=== PATIENT | female | born 1965 | race Caucasian/White ===

== ENCOUNTER → 2017-07-27 | Outpatient (CLI) | payer OTHER ==
[2017-07-27 13:10] LABS: BASO # 0.1 10^3/uL (0.0-0.2); BASO % 0.8 % (0.0-1.0); EOS # 0.1 10^3/uL (0.0-0.50); EOS % 1.8 % (0.0-3.0); IMMATURE GRANULOCYTE % 0.3 % (0-0); LYMPH # 1.6 10^3/uL (1.5-4.5); LYMPH % 24.4 % (24.0-44.0); MEAN CORPUSCULAR HEMOGLOBIN 32.9 pg (27.0-33.0); MEAN CORPUSCULAR HGB CONC 34.6 g/dl (32.0-36.5); MEAN CORPUSCULAR VOLUME 95.1 fl (80.0-96.0); MONO # 0.4 10^3/uL (0.0-0.8); MONO % 6.5 % (0.0-5.0); NEUTROPHILS # 4.4 10^3/uL (1.8-7.7); NEUTROPHILS % 66.2 % (36.0-66.0); PLATELET COUNT, AUTOMATED 218 10^3/uL (150-450); RED CELL DISTRIBUTION WIDTH 13.7 % (11.5-14.5); WHITE BLOOD COUNT 6.6 10^3/uL (4.0-10.0)
[2017-07-27 13:34] LABS: ALBUMIN 3.8 GM/DL (3.2-5.2); ALBUMIN/GLOBULIN RATIO 1.27 (1.00-1.93); ALKALINE PHOSPHATASE 68 U/L (45-117); ALT/SGPT 50 U/L (12-78); ANION GAP 6 MEQ/L (8-16); AST/SGOT 27 U/L (7-37); BILIRUBIN,TOTAL 0.4 MG/DL (0.2-1.0); BLOOD UREA NITROGEN 19 MG/DL (7-18); CALCIUM LEVEL 9.2 MG/DL (8.5-10.1); CARBON DIOXIDE LEVEL 28 MEQ/L (21-32); CHLORIDE LEVEL 108 MEQ/L (98-107); CHOLESTEROL LEVEL 227 MG/DL (<200); CREATININE FOR GFR 0.52 MG/DL (0.55-1.02); FREE T4 0.84 NG/DL (0.76-1.46); GLOMERULAR FILTRATION RATE > 60.0 (>51); GLUCOSE, FASTING 91 MG/DL (70-105); POTASSIUM SERUM 4.2 MEQ/L (3.5-5.1); SODIUM LEVEL 142 MEQ/L (136-145); TOTAL PROTEIN 6.8 GM/DL (6.4-8.2); TRIGLYCERIDES LEVEL 103 MG/DL (<150)
== END ==
LOC: M SMT 09:46
PROVIDERS: ATTEND Family Medicine
DX: I10 Essential (primary) hypertension (principal); R53.83 Other fatigue; I25.2 Old myocardial infarction

== ENCOUNTER 2017-10-02 11:10 | Emergency (ER) | payer OTHER | END 2017-10-02 12:43 | disposition home or self-care (01) | LOC: M ED 11:10 | DX: R23.3 Spontaneous ecchymoses (principal); I10 Essential (primary) hypertension; I25.2 Old myocardial infarction; Z79.899 Other long term (current) drug therapy; Z88.0 Allergy status to penicillin; Z88.8 Allergy status to other drugs, medicaments and biological substances; Z91.040 Latex allergy status; Z87.891 Personal history of nicotine dependence; Z95.0 Presence of cardiac pacemaker | CPT/HCPCS: 73130 ==

== ENCOUNTER 2018-11-09 07:51 | Day surgery (SDC) | payer OTHER ==
[~2018-11-09] VITALS: Ht 167.6 cm; Wt 81.6 kg
[~2018-11-09 07:51] MED LIST: CHLO125TA PO; DIOV320T PO; fentaNYL 100 MCG/2 ML INJECTION (J3010) IV SCH
[2018-11-09] MEDS ORDERED: EPINEPHrine INJ 1 MG/ML 1ML AMP ONE (07:52)
[2018-11-09] MEDS ORDERED: ROPIvacaine 0.5% 30 ML INJECTION (J2795 PER 1MG) ONE (07:52)
[2018-11-09] MEDS ORDERED: LR 1,000 ML IV ONE (08:15)
[2018-11-09] MEDS ORDERED: fentaNYL 100 MCG/2 ML INJECTION (J3010) As Ordered ONE (08:53)
[2018-11-09] MEDS ORDERED: MIDAZOLAM INJ 2 MG/2 ML VIAL (J2250) As Ordered ONE ×2 (08:53→11:05)
[2018-11-09 09:10] LABS: URINE PREG TEST NEGATIVE (NEGATIVE)
[2018-11-09] MEDS: MIDAZOLAM INJ 2 MG/2 ML VIAL (J2250) IV SCH ×2 (09:12→09:15)
--- NOTE | 2018-11-09 09:42 | ECGEPIP ---
Stationary ECG Study [facility] Test Date: 2018-11-09 Pat Name: AYLEEN MOREAU Department: Room: - Gender: F Consumer Loan Manager: : [id number] Requested By: TITUS Lucero Order Number: [id number] Reading MD: Lata Hernandez Measurements Intervals [place] Rate: 58 P: 58 AR: 158 QRS: 28 QRSD: 98 T: 62 QT: 440 QTc: 433 Interpretive Statements SINUS BRADYCARDIA NSSTTWABN NO PRIOR Electronically Signed On 11-09-2018 9:41:54 EST by Lata Hernandez
[2018-11-09] MEDS ORDERED: CLINDAMYCIN 600 MG/50 ML PREMIX BAG As Ordered ONE (10:11)
[2018-11-09] MEDS ORDERED: LIDOCAINE 2% INJ 100 MG/5 ML SDV (FOR ANES.) As Ordered ONE (11:05)
[2018-11-09] MEDS ORDERED: dexameTHASONE 4 MG/ML 1ML VIAL (J1100) As Ordered ONE (11:05)
[2018-11-09] MEDS ORDERED: fentaNYL 250 MCG/5 ML INJECTION (J3010) As Ordered ONE (11:05)
[2018-11-09] MEDS ORDERED: PROPOFOL 200 MG/20 ML VIAL As Ordered ONE (11:05)
[2018-11-09] MEDS ORDERED: ROCURONIUM BROMIDE 50 MG/5 ML VIAL As Ordered ONE (11:05)
[2018-11-09] MEDS ORDERED: ONDANSETRON 4MG/2ML VIAL (J2405) As Ordered ONE (13:06)
[2018-11-09] MEDS ORDERED: GLYCOPYRROLATE INJ 0.2 MG/ML 2 ML VIAL As Ordered ONE (13:07)
[2018-11-09] MEDS ORDERED: NEOSTIGMINE 10 MG/10 ML VIAL (J2710) As Ordered ONE (13:07)
[2018-11-09] MEDS ORDERED: KETOROLAC 60 MG/2 ML VIAL (J1885) As Ordered ONE (13:10)
[2018-11-09] MEDS ORDERED: PERCOCET 5MG/325MG TAB As Ordered ONE (14:02)
[2018-11-09] MEDS: fentaNYL 100 MCG/2 ML INJECTION (J3010) IV PRN ×8 (14:05→14:55)
[2018-11-09] MEDS ORDERED: METOCLOPRAMIDE INJ 10MG/2ML VIAL (J2765) IV PRN (14:15)
[2018-11-09] MEDS ORDERED: ONDANSETRON 4MG/2ML VIAL (J2405) IV PRN (14:15)
[2018-11-09] MEDS ORDERED: LR 1,000 ML IV SCH ×2 (14:15→15:00)
[2018-11-09] MEDS ORDERED: PERCOCET 5MG/325MG TAB PO PRN (14:15)
[2018-11-09] MEDS: MEPERIDINE INJ 25 MG/ML VIAL (J2175) IV PRN ×2 (14:20→14:25)
--- NOTE | 2018-11-09 14:59 | REP ---
C-ARM VIEWS, CALCANEUS: Multiple C-ARM views of the calcaneus are performed. There is mild inferior calcaneal spurring. There appears to be a resection of a portion of the posterior calcaneus. 21 seconds of fluoroscopy time utilized. Electronically Signed by Navarro Rodriguez MD 11/09/2018 05:31 P
[2018-11-09 15:50] VITALS: BP 149/74
--- NOTE | 2018-11-11 12:27 | RO ---
DATE OF PROCEDURE: 11/09/2018 PREOPERATIVE DIAGNOSIS: Left Achilles insertional tendinosis. POSTOPERATIVE DIAGNOSIS: Left Achilles insertional tendinosis. PROCEDURE: 1. Left Achilles extensive debridement. 2. Left Achilles repair. 3. Use of mini C-arm. 4. Flexor hallucis longus transfer to the calcaneus. SURGEON: Jo Ann Edmondson MD SUPERVISOR INTELLIGENCE ANALYST: MEREDITH Gallardo ANESTHESIA: General endotracheal with popliteal nerve block. SPECIMENS: Calcifications from Achilles tendon. ESTIMATED BLOOD LOSS: 25 mL. COMPLICATIONS: None. IMPLANTS: Achilles SpeedBridge system and a PEEK 6.25 x 15 mm Bio-Tenodesis screw for the FHL transfer. 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 She has failed conservative measures and has elected for operative treatment. Informed consent was obtained in the office. Risks and benefits of the surgery were discussed with the patient and include, but are not limited to, infection, damage to nerves and blood vessels, need for additional procedures, continued pain and stiffness, tendon rupture, blood clot. Despite these risks, the patient wished to proceed with surgery. PROCEDURE: The patient was met in preoperative holding area where her left lower extremity was marked as the correct operative site. She underwent a popliteal nerve block. She was taken to the operating room where she underwent general endotracheal anesthesia without difficulty and was placed in the prone position. Her bony prominences were well padded. A well padded tourniquet was placed on the left upper thigh. The left lower extremity was prepped and draped in a normal sterile fashion. Esmarch was used to exsanguinate the leg and the tourniquet was inflamed to 250 mmHg. The tourniquet was up for approximately 150 minutes. An official time out was held where the correct patient, operative site and procedure were verified. Appropriate radiographs were displayed in the operating room. Antibiotics were given within an hour of incision. Incision was marked out over the midportion of the Achilles tendon, extending down to the insertion. A #15 blade was used to make the incision and a Montgomery was used to identify the peritenon, which was then incised. This was tied with #3-0 Vicryl for later closure. Using a fresh blade, an incision was made directly through the Achilles tendon directly through the Achilles tendon from posterior to anterior. There was a very large area of calcification proximal to the insertion, which was isolated and removed from the tendon. There was also a very large enthesophyte that was removed with the use of osteotomes and a 38 blade saw. The tendon was taken off the posterior aspect of its insertion. All tendinotic tissue was debrided from the anterior aspect of the Achilles tendon. The tendon was palpated on both sides to ensure that any degenerative tissue and calcification had all been removed. Copious irrigation was performed a this point. Following this, lateral x-ray was checked to determine the resection for the Janet's. This was then resected using the saggital saw. Lateral x-ray was again checked and found that I needed to take a further amount of bone, which was performed. There was no evidence of calcification left on the tendon on this image as well. When I was satisfied with resection, the edges were smoothed down with a power rasp so all surfaces were smooth. Next, the flexor hallucis longus tendon was isolated through the main incision. It was tracked down medially as it coursed behind the sustentaculum holland. With the foot and great toe in plantar flexion, the tendon was excised using a long handled knife from medial to lateral. A #2 FiberWire was used to whipstitch the ends. Next, a Beath pin was inserted just anterior to the Achilles tendon insertion. Its placement was confirmed on lateral radiograph. Tendon measured approximately 6 mm. A 6.5 mm reamer was used to approximately 25 mm. Following this, a FiberWire was passed through the Beath pin and the tendon was brought through the previously reamed tunnel. A 6.25 mm Bio-Tenodesis screw was then placed through this tunnel and the tendon was secured. There was noted to be good tension at neutral dorsiflexion. At this point, two holes were drilled proximally for the Achilles SpeedBridge. The drill holes were tapped by hand. The SwiveLocks were inserted through these holes and passed through the tendon. I did use stay stitch sutures on the proximal aspect and these were tied down with good tension with the foot in neutral. Distal holes were then drilled and the FiberTape was secured in a normal fashion using the SwiveLocks. Excess FiberTape was cut. The stay suture on the lateral aspect of the distal row was used to further secure the lateral insertion of the tendon. This was done in a horizontal mattress fashion. Following this, copious irrigation was performed. #0 Vicryl was used to close the tendon split in a running manner. The peritenon was then closed using #2-0 Vicryl in a running manner as well. Subcutaneous tissues were closed using #3-0 Vicryl and skin was closed using #3-0 nylon. A well padded splint was applied. The patient was extubated and transferred to the recovery room in stable condition. PLAN: The patient will be non-weightbearing on the left lower extremity. She will be on aspirin 81 mg by mouth twice a day for deep vein thrombosis (DVT) prophylaxis. She will keep her leg elevated and follow-up in one week for a wound check.
== END 2018-11-09 16:15 | disposition home or self-care (01) ==
LOC: M SDC 07:51
PROVIDERS: ATTEND Orthopaedic Surgery
DX: M76.62 Achilles tendinitis, left leg (principal); I10 Essential (primary) hypertension; I25.2 Old myocardial infarction; M12.9 Arthropathy, unspecified; M54.9 Dorsalgia, unspecified; Z88.1 Allergy status to other antibiotic agents; Z88.8 Allergy status to other drugs, medicaments and biological substances; Z91.040 Latex allergy status; Z95.0 Presence of cardiac pacemaker; Z79.899 Other long term (current) drug therapy
CPT/HCPCS: 27654; 27691; 76000; 84703; 88304; 93005; C1713; J0690; J1100; J1885; J2175; J2250; J2405; J2710; J2765; J2795; J3010

== ENCOUNTER → 2019-05-03 | Outpatient (CLI) | payer OTHER ==
[~2019-05-03] MED LIST changes: -fentaNYL 100 MCG/2 ML INJECTION (J3010) IV SCH
[2019-05-03 14:27] LABS: BASO # 0.1 10^3/uL (0.0-0.2); BASO % 0.8 % (0.0-1.0); EOS # 0.2 10^3/uL (0.0-0.50); EOS % 2.4 % (0.0-3.0); HEMATOCRIT 44.1 % (36.0-47.0); HEMOGLOBIN 15.3 g/dl (12.0-15.5); LYMPH # 1.8 10^3/uL (1.5-4.5); LYMPH % 22.6 % (24.0-44.0); MEAN CORPUSCULAR HEMOGLOBIN 34.4 pg (27.0-33.0); MEAN CORPUSCULAR HGB CONC 34.7 g/dl (32.0-36.5); MEAN CORPUSCULAR VOLUME 99.1 fl (80.0-96.0); MONO # 0.5 10^3/uL (0.0-0.8); MONO % 6.7 % (0.0-5.0); NEUTROPHILS # 5.2 10^3/uL (1.8-7.7); PLATELET COUNT, AUTOMATED 240 10^3/uL (150-450); RED BLOOD COUNT 4.45 10^6/uL (4.00-5.40); WHITE BLOOD COUNT 7.8 10^3/uL (4.0-10.0)
[2019-05-03 14:46] LABS: ALT/SGPT 38 U/L (12-78); BILIRUBIN,TOTAL 0.5 MG/DL (0.2-1.0); BLOOD UREA NITROGEN 12 MG/DL (7-18); CALCIUM LEVEL 9.2 MG/DL (8.5-10.1); CARBON DIOXIDE LEVEL 29 MEQ/L (21-32); CHLORIDE LEVEL 104 MEQ/L (98-107); CHOLESTEROL LEVEL 225 MG/DL (<200); CHOLESTEROL RISK RATIO 3.571 (<5); CREATININE FOR GFR 0.65 MG/DL (0.55-1.30); FREE T4 0.99 NG/DL (0.76-1.46); GLOMERULAR FILTRATION RATE > 60.0 (>51); GLUCOSE, FASTING 91 MG/DL (70-100); HDL CHOLESTEROL 63 MG/DL (>40); LDL CHOLESTEROL 140 MG/DL (<100); NON-HDL-C 162 MG/DL; POTASSIUM SERUM 4.1 MEQ/L (3.5-5.1); SODIUM LEVEL 140 MEQ/L (136-145); TOTAL PROTEIN 6.9 GM/DL (6.4-8.2); TRIGLYCERIDES LEVEL 109 MG/DL (<150)
== END ==
LOC: M SMT 09:55
PROVIDERS: ATTEND Family Medicine
DX: E55.9 Vitamin D deficiency, unspecified (principal); E78.00 Pure hypercholesterolemia, unspecified; Z13.0 Encounter for screening for diseases of the blood and blood-forming organs and certain disorders involving the immune mechanism; Z13.29 Encounter for screening for other suspected endocrine disorder

== ENCOUNTER → 2019-12-09 | Outpatient (CLI) | payer OTHER ==
--- NOTE | 2019-12-09 14:44 | REP ---
REASON: Polyarthralgia. A single AP view of the pelvis was performed. The hip joint spaces are symmetric and relatively well maintained. There is no acute fracture or destructive osseous lesion. Electronically Signed by Stoney Huizar DO 12/09/2019 03:43 P
== END ==
LOC: M RAD 12:35
PROVIDERS: ATTEND Internal Medicine
DX: M25.50 Pain in unspecified joint (principal)

== ENCOUNTER → 2019-12-09 | Outpatient (REF) | payer OTHER ==
[2019-12-09 17:09] LABS: C REACTIVE PROTEIN QUANTITATIV < 0.30 MG/DL (0.00-0.30); CPK CREATINE PHOSPHOKINASE 62 U/L (26-192); FERRITIN 128 NG/ML (8-252); IRON (FE) 95 UG/DL (50-170); RHEUMATOID FACTOR QUANT < 10.0 IU/ML (<15.0); URIC ACID 5.2 MG/DL (2.6-6.0)
== END ==
LOC: M SFHCRHEU 12:04
PROVIDERS: ATTEND Internal Medicine
DX: M25.50 Pain in unspecified joint (principal); M79.10 Myalgia, unspecified site; R53.82 Chronic fatigue, unspecified

== ENCOUNTER → 2020-12-13 | Outpatient (REF) | payer OTHER | LOC: M LAB REF 18:15 | PROVIDERS: ATTEND Family Medicine | DX: J01.90 Acute sinusitis, unspecified (principal) ==

== ENCOUNTER → 2021-05-09 | Outpatient (CLI) | payer OTHER ==
[2021-05-09 13:34] LABS: ALBUMIN 4.4 GM/DL (3.2-5.2); ALT/SGPT 46 U/L (12-78); BILIRUBIN,TOTAL 0.4 MG/DL (0.2-1.0); BLOOD UREA NITROGEN 18 MG/DL (7-18); CALCIUM LEVEL 9.8 MG/DL (8.5-10.1); CARBON DIOXIDE LEVEL 28 MEQ/L (21-32); CHLORIDE LEVEL 105 MEQ/L (98-107); CHOLESTEROL LEVEL 242 MG/DL (<200); CHOLESTEROL RISK RATIO 4.033 (<5); CREATININE FOR GFR 0.65 MG/DL (0.55-1.30); FREE T4 1.01 NG/DL (0.76-1.46); GLOMERULAR FILTRATION RATE > 60.0 (>51); GLUCOSE, FASTING 98 MG/DL (70-100); HDL CHOLESTEROL 60 MG/DL (>40); LDL CHOLESTEROL 168 MG/DL (<100); NON-HDL-C 182 MG/DL; POTASSIUM SERUM 3.8 MEQ/L (3.5-5.1); SODIUM LEVEL 141 MEQ/L (136-145); TOTAL PROTEIN 6.9 GM/DL (6.4-8.2); TRIGLYCERIDES LEVEL 68 MG/DL (<150)
[2021-05-09 13:36] LABS: BASO # 0.1 10^3/uL (0.0-0.2); BASO % 0.6 % (0.0-1.0); EOS # 0.2 10^3/uL (0.0-0.5); EOS % 2.7 % (0.0-3.0); HEMATOCRIT 45.8 % (36.0-47.0); HEMOGLOBIN 15.6 g/dl (12.0-15.5); LYMPH # 1.7 10^3/uL (1.5-5.0); LYMPH % 21.3 % (24.0-44.0); MEAN CORPUSCULAR HEMOGLOBIN 32.4 pg (27.0-33.0); MEAN CORPUSCULAR HGB CONC 34.1 g/dl (32.0-36.5); MEAN CORPUSCULAR VOLUME 95.2 fl (80.0-96.0); MONO # 0.5 10^3/uL (0.0-0.8); MONO % 5.7 % (2.0-8.0); NEUTROPHILS # 5.7 10^3/uL (1.5-8.5); NEUTROPHILS % 69.5 % (36.0-66.0); PLATELET COUNT, AUTOMATED 228 10^3/uL (150-450); RED BLOOD COUNT 4.81 10^6/uL (4.00-5.40); WHITE BLOOD COUNT 8.1 10^3/uL (4.0-10.0)
[2021-05-09 14:36] LABS: TOTAL 25(OH) VITAMIN D 23.3 NG/ML (30.0-100.0)
== END ==
LOC: M PLALAB 09:46
PROVIDERS: ATTEND Family Medicine
DX: I10 Essential (primary) hypertension (principal)

== ENCOUNTER → 2021-11-12 | Outpatient (CLI) | payer OTHER ==
[2021-11-12 11:30] LABS: BASO % 0.6 % (0.0-1.0); EOS # 0.2 10^3/uL (0.0-0.5); EOS % 3.3 % (0.0-3.0); HEMATOCRIT 43.7 % (36.0-47.0); HEMOGLOBIN 14.7 g/dl (12.0-15.5); LYMPH # 1.7 10^3/uL (1.5-5.0); LYMPH % 26.8 % (24.0-44.0); MEAN CORPUSCULAR HEMOGLOBIN 31.8 pg (27.0-33.0); MEAN CORPUSCULAR HGB CONC 33.6 g/dl (32.0-36.5); MEAN CORPUSCULAR VOLUME 94.6 fl (80.0-96.0); MONO # 0.4 10^3/uL (0.0-0.8); MONO % 5.7 % (2.0-8.0); NEUTROPHILS % 63.4 % (36.0-66.0); PLATELET COUNT, AUTOMATED 226 10^3/uL (150-450); RED BLOOD COUNT 4.62 10^6/uL (4.00-5.40); WHITE BLOOD COUNT 6.3 10^3/uL (4.0-10.0)
[2021-11-12 12:05] LABS: ALBUMIN 3.9 GM/DL (3.2-5.2); ALT/SGPT 39 U/L (12-78); BILIRUBIN,TOTAL 0.4 MG/DL (0.2-1.0); BLOOD UREA NITROGEN 22 MG/DL (7-18); CALCIUM LEVEL 9.2 MG/DL (8.5-10.1); CARBON DIOXIDE LEVEL 29 MEQ/L (21-32); CHLORIDE LEVEL 107 MEQ/L (98-107); CHOLESTEROL LEVEL 233 MG/DL (<200); CHOLESTEROL RISK RATIO 3.819 (<5); CREATININE FOR GFR 0.55 MG/DL (0.55-1.30); GLOMERULAR FILTRATION RATE > 60.0 (>51); GLUCOSE, FASTING 90 MG/DL (70-100); HDL CHOLESTEROL 61 MG/DL (>40); LDL CHOLESTEROL 152 MG/DL (<100); NON-HDL-C 172 MG/DL; POTASSIUM SERUM 3.9 MEQ/L (3.5-5.1); SODIUM LEVEL 143 MEQ/L (136-145); TOTAL PROTEIN 6.8 GM/DL (6.4-8.2); TRIGLYCERIDES LEVEL 98 MG/DL (<150)
[2021-11-12 12:07] LABS: TOTAL 25(OH) VITAMIN D 21.1 NG/ML (30.0-100.0)
== END ==
LOC: M PLALAB 09:01
PROVIDERS: ATTEND Family Medicine
DX: E78.00 Pure hypercholesterolemia, unspecified (principal); E55.9 Vitamin D deficiency, unspecified; I10 Essential (primary) hypertension

== ENCOUNTER → 2021-11-13 | Outpatient (CLI) | payer OTHER | LOC: M WHC 07:59 | PROVIDERS: ATTEND Family Medicine | DX: Z13.820 Encounter for screening for osteoporosis (principal) ==

== ENCOUNTER → 2022-05-14 | Outpatient (CLI) | payer OTHER ==
[2022-05-14 15:19] LABS: BASO # 0.1 10^3/uL (0.0-0.2); BASO % 0.7 % (0.0-1.0); EOS # 0.2 10^3/uL (0.0-0.5); EOS % 3.1 % (0.0-3.0); HEMATOCRIT 41.6 % (36.0-47.0); HEMOGLOBIN 13.6 g/dl (12.0-15.5); LYMPH # 1.8 10^3/uL (1.5-5.0); LYMPH % 26.3 % (24.0-44.0); MEAN CORPUSCULAR HEMOGLOBIN 32.2 pg (27.0-33.0); MEAN CORPUSCULAR HGB CONC 32.7 g/dl (32.0-36.5); MEAN CORPUSCULAR VOLUME 98.3 fl (80.0-96.0); MONO # 0.4 10^3/uL (0.0-0.8); MONO % 5.9 % (2.0-8.0); NEUTROPHILS # 4.3 10^3/uL (1.5-8.5); NEUTROPHILS % 63.7 % (36.0-66.0); PLATELET COUNT, AUTOMATED 223 10^3/uL (150-450); RED BLOOD COUNT 4.23 10^6/uL (4.00-5.40); WHITE BLOOD COUNT 6.8 10^3/uL (4.0-10.0)
[2022-05-14 16:05] LABS: ALBUMIN 3.7 GM/DL (3.2-5.2); ALT/SGPT 36 U/L (12-78); BILIRUBIN,TOTAL 0.2 MG/DL (0.2-1.0); BLOOD UREA NITROGEN 19 MG/DL (7-18); CALCIUM LEVEL 9.3 MG/DL (8.5-10.1); CARBON DIOXIDE LEVEL 28 MEQ/L (21-32); CHLORIDE LEVEL 111 MEQ/L (98-107); CHOLESTEROL LEVEL 226 MG/DL (<200); CHOLESTEROL RISK RATIO 4.109 (<5); CREATININE FOR GFR 0.62 MG/DL (0.55-1.30); GLOMERULAR FILTRATION RATE > 60.0 (>51); GLUCOSE, FASTING 92 MG/DL (70-100); HDL CHOLESTEROL 55 MG/DL (>40); LDL CHOLESTEROL 160 MG/DL (<100); NON-HDL-C 171 MG/DL; POTASSIUM SERUM 4.7 MEQ/L (3.5-5.1); SODIUM LEVEL 142 MEQ/L (136-145); TOTAL PROTEIN 6.3 GM/DL (6.4-8.2); TRIGLYCERIDES LEVEL 54 MG/DL (<150)
[2022-05-14 16:34] LABS: TOTAL 25(OH) VITAMIN D 27.9 NG/ML (30.0-100.0)
== END ==
LOC: M PLALAB 09:51
PROVIDERS: ATTEND Family Medicine
DX: E78.00 Pure hypercholesterolemia, unspecified (principal)